=== PATIENT | male | born 1985 | race Two or more races ===

== ENCOUNTER 2019-05-06 21:03 | Emergency (ER) | payer SELFPAY ==
[~2019-05-06] VITALS: Ht 167.6 cm; Wt 71.7 kg
[2019-05-06] MEDS ORDERED: IBUPROFEN 400 MG TAB PO ONE (22:00)
[2019-05-06] MEDS ORDERED: HYDROcodone-ACET 7.5/325MG TAB PO ONE (22:00)
[2019-05-06 23:30] VITALS: BP 110/75
== END 2019-05-06 23:59 | disposition home or self-care (01) ==
LOC: ER 21:05
DX: S42.142A Displaced fracture of glenoid cavity of scapula, left shoulder, initial encounter for closed fracture (principal); S22.42XA Multiple fractures of ribs, left side, initial encounter for closed fracture; S42.025A Nondisplaced fracture of shaft of left clavicle, initial encounter for closed fracture; W19.XXXA Unspecified fall, initial encounter; Y93.89 Activity, other specified; Y99.8 Other external cause status; Y92.89 Other specified places as the place of occurrence of the external cause
CPT/HCPCS: 29105; 70450; 71045; 73000; 73030

== ENCOUNTER 2022-12-27 10:01 | Emergency (ER) | payer MEDICAID ==
[~2022-12-27] VITALS: Ht 165.1 cm; Wt 75.1 kg
[2022-12-27 10:31] VITALS: BP 140/91; PULSE 112; RESP 18; TEMP 97.5; O2SAT 100
[2022-12-27] MEDS ORDERED: IBUP-1454 PO (10:58)
[2022-12-27] MEDS ORDERED: CEPH500C PO (10:58)
== END 2022-12-27 11:09 | disposition home or self-care (01) ==
LOC: ER 10:01
DX: G96.191 Perineural cyst (principal); L08.9 Local infection of the skin and subcutaneous tissue, unspecified

== ENCOUNTER 2023-06-14 13:19 | Inpatient (IN) | payer MEDICAID ==
[~2023-06-14] VITALS: Ht 152.4 cm; Wt 77.5 kg
[~2023-06-14 13:19] MED LIST: CEPH500C PO; IBUP-1454 PO
[2023-06-14 15:29] LABS: Basophils # (auto) 0.1 10 ^3/uL (0-0.2); Basophils % (auto) 0.6 % (0.0-2.0); Eosinophils # (auto) 0 10 ^3/uL (0-0.8); Hematocrit 48.9 % (41.0-53.0); Hemoglobin 16.4 g/dL (13.5-17.5); Lymphocytes # (auto) 0.7 10 ^3/uL (0.4-5.4); Lymphocytes % (auto) 4.5 % (10.0-50.0); Mean Corpuscular Hgb Conc. 33.6 g/dL (32.0-36.0); Mean Corpuscular Volume 89.4 fL (80.0-100.0); Monocytes # (auto) 0.8 10 ^3/uL (0-1.3); Monocytes % (auto) 5.4 % (0.0-12.0); Neutrophils # (auto) 13.4 10 ^3/uL (1.6-8.6); Neutrophils % (auto) 89.5 % (37.0-80.0); Nucleated Red Blood Cells % 0.1 %; Red Blood Cells 5.47 10^6/uL (4.5-5.90); Red Cell Distribution Width 13.6 % (11.8-14.3)
[2023-06-14 15:42] LABS: Alanine Aminotransferase 61 U/L (7-40); Albumin 4.6 g/dL (3.2-4.8); Alkaline Phosphatase 144 U/L (46-116); Anion Gap 12 (5-15); Aspartate Aminotransferase 85 U/L (13-40); BUN/Creatinine Ratio 6.9 (10.0-20.0); Bilirubin, Total 2.4 mg/dL (0.2-1.0); Blood Alcohol 3.1 mg/dL (<10); Blood Urea Nitrogen 7 mg/dL (9-23); Calcium 9.4 mg/dL (8.5-10.1); Carbon Dioxide 25 mmol/L (20-30); Chloride 100 mmol/L (98-107); Glucose 145 mg/dL (74-106); Potassium 3.7 mmol/L (3.5-5.1); Sodium 137 mmol/L (136-145); Total Protein 8.1 g/dL (5.7-8.2)
[2023-06-14 15:43] LABS: INR 1.06 (0.9-1.15); Partial Thromboplastin Time 24.7 SEC (24.5-34.5); Prothrombin Time 11.1 sec (9.3-11.8)
[2023-06-14 16:12] LABS: Lipase 340 U/L (12-53)
[2023-06-14] MEDS: HYDROmorphone HCL 2 MG/ML VL/or syr IV ONE (16:15)
[2023-06-14 17:00] LABS: Lactic Acid w/Reflex 2.5 mmol/L (0.4-2.0)
[2023-06-14] MEDS ORDERED: ONDANSETRON HCL 4 MG/2 ML VIAL IV PRN (18:15)
[2023-06-14] MEDS ORDERED: DOCUSATE SOD 100 MG CAP PO PRN (18:15)
[2023-06-14] MEDS: KETOROLAC TROMETH 30 MG/ML 1ML VIAL IV ONE (20:16)
[2023-06-14] MEDS: METOCLOPRAMIDE HCL 5MG/ml INJ 2ml VIAL IV ONE (20:16)
[2023-06-14] MEDS: HYDROmorphone HCL 2 MG/ML VL/or syr IV PRN (20:21)
[2023-06-14] MEDS: PIPERACILLIN-TAZOB 3.375GM 100 ML IV ONE (20:28)
[2023-06-14] MEDS: SODIUM CHLORIDE 0.9% 1,000 ML IVB ONE (20:30)
[2023-06-14 20:35] LABS: CRP High Sensitivity 3.2 mg/dL (<1.0)
[2023-06-14] MEDS: chlordiazePOXIDE HCL 25 MG CAP PO SCH (20:40)
[2023-06-14] MEDS: SODIUM CHLORIDE 0.9% 1,000 ML IV SCH (21:11)
[2023-06-14] MEDS: PIPERACILLIN-TAZOB 3.375GM 100 ML IV SCH (21:14)
[2023-06-14] MEDS: PANTOPRAZOLE 40 MG/10 ML VIAL INJ IV SCH (22:04)
[2023-06-15 01:35] VITALS: BP 150/92; PULSE 97; RESP 19; TEMP 98.1; O2SAT 99
[2023-06-15 05:00] VITALS: BP 126/84; PULSE 98; RESP 18; TEMP 98.1; O2SAT 95
[2023-06-15 05:26] LABS: Basophils # (auto) 0 10 ^3/uL (0-0.2); Basophils % (auto) 0.3 % (0.0-2.0); Eosinophils # (auto) 0 10 ^3/uL (0-0.8); Eosinophils % (auto) 0.1 % (0.0-7.0); Hematocrit 39.5 % (41.0-53.0); Hemoglobin 13.8 g/dL (13.5-17.5); Lymphocytes # (auto) 0.7 10 ^3/uL (0.4-5.4); Lymphocytes % (auto) 7.4 % (10.0-50.0); Mean Corpuscular Hemoglobin 30.9 pg (28.0-32.0); Mean Corpuscular Volume 88.4 fL (80.0-100.0); Monocytes # (auto) 0.5 10 ^3/uL (0-1.3); Monocytes % (auto) 5.4 % (0.0-12.0); Neutrophils # (auto) 8.7 10 ^3/uL (1.6-8.6); Neutrophils % (auto) 86.8 % (37.0-80.0); Nucleated Red Blood Cells % 0.1 %; Red Blood Cells 4.47 10^6/uL (4.5-5.90); Red Cell Distribution Width 13.8 % (11.8-14.3); White Blood Cell 10.1 10^3/uL (4.4-10.8)
[2023-06-15 05:44] LABS: Alanine Aminotransferase 45 U/L (7-40); Albumin 3.7 g/dL (3.2-4.8); Alkaline Phosphatase 100 U/L (46-116); Anion Gap 8 (5-15); Aspartate Aminotransferase 43 U/L (13-40); BUN/Creatinine Ratio 9.3 (10.0-20.0); Blood Urea Nitrogen 7 mg/dL (9-23); Calcium 8.2 mg/dL (8.7-10.4); Carbon Dioxide 25 mmol/L (20-30); Chloride 105 mmol/L (98-107); Glucose 116 mg/dL (74-106); Lipase 127 U/L (12-53); Potassium 2.9 mmol/L (3.5-5.1); Sodium 138 mmol/L (136-145); Total Protein 6.7 g/dL (5.7-8.2)
[2023-06-15 09:00] VITALS: BP 132/81; PULSE 104; RESP 18; TEMP 98.7; O2SAT 94
[2023-06-15] MEDS: chlordiazePOXIDE HCL 25 MG CAP PO SCH (10:00)
[2023-06-15 13:00] VITALS: BP 134/80; PULSE 101; RESP 18; TEMP 97.9; O2SAT 98
[2023-06-15 17:00] VITALS: BP 130/72; PULSE 116; RESP 18; TEMP 99; O2SAT 94
[2023-06-15 21:00] VITALS: BP 144/82; PULSE 94; RESP 18; TEMP 98.5; O2SAT 97
[2023-06-15 22:15] LABS: Urine Bacteria NONE SEEN /hpf (None Seen); Urine Blood Negative /uL (Negative); Urine Clarity Clear (Clear); Urine Color Yellow (Yellow); Urine Protein, UAD TRACE (Negative); Urine Specific Gravity 1.031 (1.001-1.035); Urine Urobilinogen Normal (Negative); Urine WBC 1 /hpf (0 - 3)
[2023-06-15 22:23] LABS: Amphetamine Screen, Urine Neg (NEGATIVE)
[2023-06-15 22:24] LABS: Barbiturate Scree,Urine Neg (NEGATIVE); Benzodiazephine Screen, Urine Pos (NEGATIVE); Cannabinoid Screen, Urine Neg (NEGATIVE); Cocaine Screen, Urine Pos (NEGATIVE); Opiate Scree,Urine Neg (NEGATIVE); Phencyclidine Screen, Urine Neg (NEGATIVE)
[2023-06-16 01:00] VITALS: BP 115/67; PULSE 119; RESP 20; TEMP 98.7; O2SAT 96
[2023-06-16 05:00] VITALS: BP 101/61; PULSE 109; RESP 19; TEMP 99.2; O2SAT 95
[2023-06-16 09:00] VITALS: BP 111/69; PULSE 112; RESP 17; TEMP 98.1; O2SAT 95
[2023-06-16] MEDS: chlordiazePOXIDE HCL 25 MG CAP PO SCH (10:30)
[2023-06-16 13:00] VITALS: BP 103/71; PULSE 101; RESP 17; TEMP 98.7; O2SAT 98
[2023-06-17] MEDS ORDERED: chlordiazePOXIDE HCL 25 MG CAP PO SCH (07:00)
== END 2023-06-16 15:47 | disposition home or self-care (01) | DRG 720 ==
LOC: ER 13:19 → OVERFLOW 18:15 → WEST WING 06-15 01:28
PROVIDERS: ADMIT Internal Medicine; ATTEND Internal Medicine
DX: A41.9 Sepsis, unspecified organism (principal); E87.21 Acute metabolic acidosis; K85.90 Acute pancreatitis without necrosis or infection, unspecified; K26.3 Acute duodenal ulcer without hemorrhage or perforation; E86.1 Hypovolemia; K29.80 Duodenitis without bleeding; R73.9 Hyperglycemia, unspecified; F10.10 Alcohol abuse, uncomplicated; R74.01 Elevation of levels of liver transaminase levels; F17.200 Nicotine dependence, unspecified, uncomplicated; Z80.8 Family history of malignant neoplasm of other organs or systems; Z79.899 Other long term (current) drug therapy
CPT/HCPCS: 36415; 74176; 76705; 80053; 80307; 80320; 81001; 83605; 83690; 84478; 85025; 85610; 85730; 86141; 87040; 96365; 96375; C9113; G0378; J2543

== ENCOUNTER 2023-11-10 09:14 | Emergency (ER) | payer MEDICAID ==
[~2023-11-10] VITALS: Ht 160 cm; Wt 75.3 kg
[~2023-11-10 09:14] MED LIST changes: -CEPH500C PO
[2023-11-10 12:16] VITALS: TEMP 97.5; O2SAT 99
[2023-11-10 13:05] LABS: Basophils # (auto) 0.1 10 ^3/uL (0-0.2); Basophils % (auto) 0.8 % (0.0-2.0); Eosinophils # (auto) 0.1 10 ^3/uL (0-0.8); Eosinophils % (auto) 1.6 % (0.0-7.0); Hematocrit 43.7 % (41.0-53.0); Hemoglobin 15.1 g/dL (13.5-17.5); Lymphocytes # (auto) 1.4 10 ^3/uL (0.4-5.4); Mean Corpuscular Hemoglobin 31.3 pg (28.0-32.0); Mean Corpuscular Hgb Conc. 34.6 g/dL (32.0-36.0); Mean Corpuscular Volume 90.3 fL (80.0-100.0); Monocytes # (auto) 0.5 10 ^3/uL (0-1.3); Monocytes % (auto) 6.3 % (0.0-12.0); Neutrophils # (auto) 5.1 10 ^3/uL (1.6-8.6); Neutrophils % (auto) 72.3 % (37.0-80.0); Nucleated Red Blood Cells % 0.1 %; Platelet Count (auto) 161 10^3/uL (140-450); Red Blood Cells 4.84 10^6/uL (4.5-5.90); Red Cell Distribution Width 12.6 % (11.8-14.3); White Blood Cell 7.1 10^3/uL (4.4-10.8)
[2023-11-10] MEDS ORDERED: BACDST PO (13:12)
[2023-11-10] MEDS ORDERED: CEPH500C PO (13:12)
[2023-11-10] MEDS ORDERED: IBUP-1455 PO (13:12)
[2023-11-10 13:13] LABS: Chloride 105 mmol/L (98-107); Potassium 3.6 mmol/L (3.5-5.1); Sodium 134 mmol/L (136-145)
[2023-11-10 13:14] LABS: Anion Gap 6 (5-15); Carbon Dioxide 23 mmol/L (20-30)
[2023-11-10 13:15] LABS: Calcium 8.9 mg/dL (8.7-10.4)
[2023-11-10 13:19] VITALS: BP 137/64; PULSE 82; RESP 17
[2023-11-10 13:19] LABS: Glucose 133 mg/dL (74-106)
[2023-11-10] MEDS: MORPHINE SULFATE INJ 2 MG/ml SYRG IM ONE (13:19)
[2023-11-10 13:20] LABS: BUN/Creatinine Ratio 6.6 (10.0-20.0); Blood Urea Nitrogen < 5 mg/dL (9-23)
== END 2023-11-10 15:05 | disposition home or self-care (01) ==
LOC: ER 09:20
DX: N49.2 Inflammatory disorders of scrotum (principal); Z79.899 Other long term (current) drug therapy
CPT/HCPCS: 36415; 80048; 85025; 96372; 99283; J2270

== ENCOUNTER 2024-01-01 23:33 | Inpatient (IN) | payer MEDICAID ==
[~2024-01-01] VITALS: Ht 154.9 cm; Wt 75.0 kg
[~2024-01-01 23:33] MED LIST changes: +BACDST PO; +CEPH500C PO; +IBUP-1455 PO
[2024-01-02 00:01] LABS: Basophils # (auto) 0.1 10 ^3/uL (0-0.2); Basophils % (auto) 0.7 % (0.0-2.0); Eosinophils # (auto) 0.2 10 ^3/uL (0-0.8); Eosinophils % (auto) 2.3 % (0.0-7.0); Hematocrit 46.2 % (41.0-53.0); Hemoglobin 16.2 g/dL (13.5-17.5); Lymphocytes # (auto) 2.4 10 ^3/uL (0.4-5.4); Lymphocytes % (auto) 27.4 % (10.0-50.0); Mean Corpuscular Volume 88.8 fL (80.0-100.0); Monocytes # (auto) 0.6 10 ^3/uL (0-1.3); Monocytes % (auto) 7.1 % (0.0-12.0); Neutrophils # (auto) 5.6 10 ^3/uL (1.6-8.6); Neutrophils % (auto) 62.5 % (37.0-80.0); Nucleated Red Blood Cells % 0.1 %; Platelet Count (auto) 190 10^3/uL (140-450); Red Cell Distribution Width 13.1 % (11.8-14.3); White Blood Cell 8.9 10^3/uL (4.4-10.8)
[2024-01-02 00:31] LABS: Alanine Aminotransferase 79 U/L (7-40); Albumin 4.6 g/dL (3.2-4.8); Alkaline Phosphatase 134 U/L (46-116); Anion Gap 10 (5-15); Aspartate Aminotransferase 118 U/L (13-40); BUN/Creatinine Ratio 6.4 (10.0-20.0); Bilirubin, Total 0.9 mg/dL (0.2-1.0); Blood Urea Nitrogen 5 mg/dL (9-23); Calcium 9.2 mg/dL (8.7-10.4); Carbon Dioxide 22 mmol/L (20-31); Chloride 102 mmol/L (98-107); Glucose 106 mg/dL (74-106); Potassium 3.4 mmol/L (3.5-5.1); Sodium 134 mmol/L (136-145)
[2024-01-02] MEDS ORDERED: NITROGLYCERIN 0.4 MG SL TAB SL PRN (06:45)
[2024-01-02] MEDS ORDERED: MORPHINE SULFATE INJ 2 MG/ml SYRG IV PRN (06:45)
[2024-01-02] MEDS ORDERED: IBUPROFEN 600 MG TAB PO PRN (06:45)
[2024-01-02 07:30] VITALS: PULSE 94; RESP 16; O2SAT 99
[2024-01-02 07:42] LABS: Basophils # (auto) 0 10 ^3/uL (0-0.2); Basophils % (auto) 0.4 % (0.0-2.0); Eosinophils # (auto) 0.2 10 ^3/uL (0-0.8); Eosinophils % (auto) 3.1 % (0.0-7.0); Hematocrit 42.6 % (41.0-53.0); Hemoglobin 15.1 g/dL (13.5-17.5); Lymphocytes # (auto) 0.5 10 ^3/uL (0.4-5.4); Lymphocytes % (auto) 6.5 % (10.0-50.0); Mean Corpuscular Hemoglobin 31.6 pg (28.0-32.0); Mean Corpuscular Hgb Conc. 35.5 g/dL (32.0-36.0); Monocytes # (auto) 0.3 10 ^3/uL (0-1.3); Monocytes % (auto) 4.4 % (0.0-12.0); Neutrophils # (auto) 6.1 10 ^3/uL (1.6-8.6); Neutrophils % (auto) 85.6 % (37.0-80.0); Nucleated Red Blood Cells % 0.2 %; Platelet Count (auto) 127 10^3/uL (140-450); Red Blood Cells 4.79 10^6/uL (4.5-5.90); Red Cell Distribution Width 12.7 % (11.8-14.3); White Blood Cell 7.1 10^3/uL (4.4-10.8)
[2024-01-02] MEDS: SODIUM CHLORIDE 0.9% 1,000 ML IV SCH (07:59)
[2024-01-02] MEDS: POTASSIUM CHL 20 Meq TABLET PO ONE (07:59)
[2024-01-02 08:10] LABS: Alanine Aminotransferase 72 U/L (7-40); Albumin 4.2 g/dL (3.2-4.8); Alkaline Phosphatase 123 U/L (46-116); Anion Gap 7 (5-15); Aspartate Aminotransferase 88 U/L (13-40); BUN/Creatinine Ratio 7.7 (10.0-20.0); Blood Urea Nitrogen 6 mg/dL (9-23); Calcium 9.3 mg/dL (8.7-10.4); Carbon Dioxide 22 mmol/L (20-31); Chloride 106 mmol/L (98-107); Glucose 112 mg/dL (74-106); Potassium 3.7 mmol/L (3.5-5.1); Sodium 135 mmol/L (136-145)
[2024-01-02 08:11] LABS: Bilirubin, Total 1.7 mg/dL (0.2-1.0); Total Protein 7.5 g/dL (5.7-8.2)
[2024-01-02 10:38] VITALS: BP 121/82; PULSE 88; RESP 22; TEMP 97.8; O2SAT 99
[2024-01-02] MEDS: ASPirin 81 mg TAB PO SCH (11:13)
[2024-01-02 11:17] LABS: Urine Bacteria None Seen /hpf (None Seen)
[2024-01-02] MEDS: ONDANSETRON HCL 4 MG/2 ML VIAL IV PRN (11:17)
[2024-01-02] MEDS: MORPHINE SULFATE INJ 2 MG/ml SYRG IV PRN (11:18)
[2024-01-02] MEDS: DOCUSATE SOD 100 MG CAP PO PRN (11:31)
[2024-01-02 11:39] LABS: Urine Blood Negative /uL (Negative); Urine Clarity Clear (Clear); Urine Color Light-Orange (Yellow); Urine Protein, UAD TRACE (Negative); Urine Specific Gravity 1.022 (1.001-1.035); Urine Urobilinogen Normal (Negative); Urine WBC <1 /hpf (0 - 3)
[2024-01-02 17:00] VITALS: BP 124/80; PULSE 86; RESP 20; TEMP 98.3; O2SAT 95
[2024-01-02 20:00] VITALS: PULSE 88; PULSE 98; RESP 16
[2024-01-02 21:00] VITALS: BP 119/78; PULSE 97; RESP 18; TEMP 98.2; O2SAT 98
[2024-01-02] MEDS: HYDROcodone-ACET 5/325MG TAB PO PRN (21:04)
[2024-01-02] MEDS: ATORVASTATIN 20 MG TAB PO SCH (21:05)
[2024-01-03] VITALS (8 sets, daily range): BP systolic 112–132; BP diastolic 73–87; PULSE 74–97; RESP 16–18; TEMP 97.8–98.9; O2SAT 96–100
[2024-01-03 05:48] LABS: Basophils # (auto) 0 10 ^3/uL (0-0.2); Basophils % (auto) 0.7 % (0.0-2.0); Eosinophils # (auto) 0.3 10 ^3/uL (0-0.8); Eosinophils % (auto) 6.4 % (0.0-7.0); Hematocrit 40.6 % (41.0-53.0); Hemoglobin 14.2 g/dL (13.5-17.5); Lymphocytes % (auto) 22.6 % (10.0-50.0); Mean Corpuscular Hemoglobin 31.1 pg (28.0-32.0); Mean Corpuscular Hgb Conc. 34.9 g/dL (32.0-36.0); Mean Corpuscular Volume 89.1 fL (80.0-100.0); Monocytes # (auto) 0.4 10 ^3/uL (0-1.3); Monocytes % (auto) 8.7 % (0.0-12.0); Neutrophils # (auto) 2.8 10 ^3/uL (1.6-8.6); Neutrophils % (auto) 61.6 % (37.0-80.0); Nucleated Red Blood Cells % 0.3 %; Platelet Count (auto) 127 10^3/uL (140-450); Red Blood Cells 4.56 10^6/uL (4.5-5.90); Red Cell Distribution Width 12.8 % (11.8-14.3); White Blood Cell 4.6 10^3/uL (4.4-10.8)
[2024-01-03 06:05] LABS: Alanine Aminotransferase 63 U/L (7-40); Alkaline Phosphatase 109 U/L (46-116); Anion Gap 6 (5-15); Aspartate Aminotransferase 77 U/L (13-40); Blood Urea Nitrogen 7 mg/dL (9-23); Calcium 9.3 mg/dL (8.7-10.4); Carbon Dioxide 26 mmol/L (20-31); Chloride 104 mmol/L (98-107); Glucose 107 mg/dL (74-106); Potassium 3.8 mmol/L (3.5-5.1); Sodium 136 mmol/L (136-145)
[2024-01-03 06:06] LABS: Bilirubin, Total 1.1 mg/dL (0.2-1.0)
[2024-01-03 18:32] LABS: LDL Cholesterol 138 mg/dL (< 100); Triglycerides 183 mg/dL (< 150)
[2024-01-03 18:34] LABS: Cholesterol 216 mg/dL (< 200); HDL Cholesterol 67 mg/dL (40-59)
[2024-01-03 21:55] LABS: Amphetamine Screen, Urine Neg (NEGATIVE); Barbiturate Scree,Urine Neg (NEGATIVE); Benzodiazephine Screen, Urine Neg (NEGATIVE); Cannabinoid Screen, Urine Neg (NEGATIVE); Cocaine Screen, Urine Neg (NEGATIVE); Opiate Scree,Urine Neg (NEGATIVE); Phencyclidine Screen, Urine Neg (NEGATIVE)
[2024-01-04 01:00] VITALS: BP 110/71; PULSE 82; RESP 18; TEMP 98; O2SAT 96
[2024-01-04 05:00] VITALS: BP 111/74; PULSE 86; RESP 18; TEMP 97.9; O2SAT 99
[2024-01-04 08:00] VITALS: PULSE 84; PULSE 86; RESP 18
[2024-01-04 09:00] VITALS: BP 116/60; PULSE 84; RESP 16; TEMP 97.6; O2SAT 97
[2024-01-04 13:00] VITALS: BP 126/83; PULSE 87; RESP 16; TEMP 98; O2SAT 98
[2024-01-04 14:25] VITALS: BP 126/83; PULSE 87; RESP 17; TEMP 97.8; O2SAT 98
[2024-01-04] MEDS ORDERED: ATORVASTATIN 20 MG TAB PO SCH (22:00)
== END 2024-01-04 15:00 | disposition home or self-care (01) | DRG 203 ==
LOC: ER 23:33 → TELE 01-02 06:42 → TELE-CENTR 01-02 10:00
PROVIDERS: ADMIT Nurse Practitioner Family; ATTEND Internal Medicine
DX: M94.0 Chondrocostal junction syndrome [Tietze] (principal); E87.8 Other disorders of electrolyte and fluid balance, not elsewhere classified; E66.9 Obesity, unspecified; E87.6 Hypokalemia; F10.90 Alcohol use, unspecified, uncomplicated; Z68.31 Body mass index [BMI] 31.0-31.9, adult; Z80.8 Family history of malignant neoplasm of other organs or systems; Z82.49 Family history of ischemic heart disease and other diseases of the circulatory system; Z83.3 Family history of diabetes mellitus; Z79.899 Other long term (current) drug therapy; Y90.9 Presence of alcohol in blood, level not specified
CPT/HCPCS: 36415; 70450; 80053; 80061; 80307; 81001; 82962; 83036; 83735; 83880; 84443; 84484; 85025; 93005; 93306; 99291; G0378; J2405

== ENCOUNTER 2024-01-24 05:43 | Inpatient (IN) | payer MEDICAID ==
[~2024-01-24] VITALS: Ht 160 cm; Wt 76.6 kg
[~2024-01-24 05:43] MED LIST changes: -BACDST PO; -CEPH500C PO
--- NOTE | 2024-01-24 05:56 | ED.PDOC ---
History of Present Illness HPI Comments MSE 38-year-old male previously healthy presents with 12 hours of paresthesias and numbness to his left arm leg and face. Patient also reports he is some weakness of his left leg. Patient reports it has happened before and he was told it is because he has high cholesterol. Patient is out of the window for thrombolytics for acute CVA. Patient's presentation is not consistent for acute CVA we will order labs CT and x-ray to evaluate for possible causes. Patient will be endorsed to morning doctor. Chief Complaint: Left Sided Weakness Time Seen by MD: 05:52 Primary Care Provider: unknown Reviewed Notes: Nurses Notes Allergies: Coded Allergies: NO KNOWN ALLERGIES (Unverified , 05/06/19) Home Meds Active Scripts Ibuprofen Micronized (Ibuprofen) 800 Mg Tab, 800 MG PO TIDP PRN for 10 Days, #30 TAB 0 Refills Prov:NAOMI ZIMMERMAN ENERGY OPERATIONS VICE PRESIDENT 11/10/23 Ibuprofen (Ibuprofen) 600 Mg Tab, 1 TAB PO TID, #30 TAB Prov:RONAK GEE 12/27/22 Information Source: Patient Mode of Arrival: Ambulatory DEWEY SMITH MD Jan 24, 2024 05:56
--- NOTE | 2024-01-24 06:17 | DVH ---
CHEST RADIOGRAPH Indication:parasthesias Technique: Single frontal view of the chest was obtained COMPARISON: XY CHEST PORTABLE on DOS: 01/01/24, CHEST PORTABLE on DOS: 05/06/19 FINDINGS: Lines and Tubes: None Lungs: Clear Pleura: No effusion. No pneumothorax. Cardiomediastinal contours: Unremarkable Bones: Unremarkable IMPRESSION: No acute disease.
--- NOTE | 2024-01-24 06:21 | DVH ---
EXAM: CT HEAD WITHOUT CONTRAST INDICATION: parasthesias TECHNIQUE: CT of the head without intravenous contrast. Radiation Dose : 1. Head: CT Dose: CTDI volume is 54 mGy. Dose-length product is 1076 mGy*cm The dose indicators for CT are the volume Computed Tomography (CT) Dose Index (CTDIvol) and the Dose Length Product (DLP), and are measured in units of mGy and mGy-cm, respectively. These indicators are not patient dose, but values generated from the CT scanner acquisition factors. The report includes radiation exposure data for exposures received during this examination. COMPARISON: CT HEAD WITHOUT CONTRAST on DOS: 01/04/24, HEAD WITHOUT CONTRAST on DOS: 05/06/19 FINDINGS: There is no evidence of acute intracranial hemorrhage, extra-axial collection, mass effect, midline s hift, herniation or hydrocephalus. The ventricles, sulci and cisterns are age appropriate. The jaramillo-white differentiation is intact. The visualized paranasal sinuses and mastoid air cells are clear. The surrounding soft tissues and osseous structures are unremarkable. IMPRESSION: No acute intracranial abnormality. Radiation optimization: All CT scans at this facility use at least one of these dose optimization monico hniques: automated exposure control mA and/or kV adjustment per patient size (includes targeted exam s where dose is matched to clinical indication) or iterative reconstruction.
[2024-01-24 06:55] LABS: Chloride 101 mmol/L (98-107); Potassium 3.7 mmol/L (3.5-5.1); Sodium 134 mmol/L (136-145)
[2024-01-24 06:56] LABS: Anion Gap 12 (5-15); Calcium 9.4 mg/dL (8.7-10.4); Carbon Dioxide 21 mmol/L (20-31)
[2024-01-24 06:57] LABS: Basophils # (auto) 0.1 10 ^3/uL (0-0.2); Basophils % (auto) 0.8 % (0.0-2.0); Eosinophils # (auto) 0.1 10 ^3/uL (0-0.8); Eosinophils % (auto) 0.7 % (0.0-7.0); Hematocrit 47.1 % (41.0-53.0); Hemoglobin 16.7 g/dL (13.5-17.5); Lymphocytes % (auto) 24.5 % (10.0-50.0); Mean Corpuscular Hemoglobin 31.2 pg (28.0-32.0); Mean Corpuscular Hgb Conc. 35.4 g/dL (32.0-36.0); Mean Corpuscular Volume 88.2 fL (80.0-100.0); Monocytes # (auto) 0.5 10 ^3/uL (0-1.3); Monocytes % (auto) 5.9 % (0.0-12.0); Neutrophils # (auto) 5.4 10 ^3/uL (1.6-8.6); Neutrophils % (auto) 68.1 % (37.0-80.0); Nucleated Red Blood Cells % 0.2 %; Platelet Count (auto) 303 10^3/uL (140-450); Red Blood Cells 5.34 10^6/uL (4.5-5.90); Red Cell Distribution Width 13.3 % (11.8-14.3)
--- NOTE | 2024-01-24 06:59 | ED.PDOC ---
History of Present Illness HPI Comments 38Y M with PMHx HTN and HLD presents to ED for chief complaint lt sided weakness and numbness x12hrs with chest pain. Pt described chest pain as chest pressure that sometimes radiates to his back. Pt had one vomiting episode after the chest pain began. Pt states eyes feel "sleepy". Pt denies trauma. No known allergies. Chief Complaint: Left Sided Weakness Time Seen by MD: 07:36 Primary Care Provider: unknown Reviewed Notes: Medications, Allergies Allergies: Coded Allergies: NO KNOWN ALLERGIES (Unverified , 05/06/19) Home Meds Active Scripts Ibuprofen Micronized (Ibuprofen) 800 Mg Tab, 800 MG PO TIDP PRN for 10 Days, #30 TAB 0 Refills Prov:NAOMI ZIMMERMAN CLINICAL NURSE REVIEWER 11/10/23 Ibuprofen (Ibuprofen) 600 Mg Tab, 1 TAB PO TID, #30 TAB Prov:RONAK GEE 12/27/22 Information Source: Patient Mode of Arrival: Ambulatory Severity: Moderate Timing: Hours Duration: Since onset Past Medical History PAST MEDICAL HISTORY: High Lipids, HTN Surgical History: Denies all surgeries Family History Family History: Reviewed,noncontributory to illness Social History Smoker: Non-Smoker Alcohol: Occasionally Drugs: Denies Drug Use Lives In: Home Constitutional: denies: chills, diaphoresis, fatigue, fever, malaise, sweats, weakness, others EENTM: denies: blurred vision, double vision, ear bleeding, ear discharge, ear drainage, ear pain, ear ringing, eye pain, eye redness, hearing loss, mouth pain, mouth swelling, nasal discharge, nose bleeding, nose congestion, nose pain, photophobia, tearing, throat pain, throat swelling, voice changes, others Respiratory: denies: cough, hemoptysis, orthopnea, SOB at rest, shortness of breath, SOB with excertion, stridor, wheezing, others Cardiovascular: reports: chest pain (pressure); denies: dizzy spells, diaphoresis, Dyspnea on exertion, edema, irregular heart beat, left arm pain, lightheadedness, palpitations, PND, syncope, others Gastrointestinal: denies: abdomen distended, abdominal pain, blood streaked bowels, constipated, diarrhea, dysphagia, difficulty swallowing, hematemesis, melena, nausea, poor appetite, poor fluid intake, rectal bleeding, rectal pain, vomiting, others Genitourinary: denies: burning, dysuria, flank pain, frequency, hematuria, incontinence, penile discharge, penile sore, pain, testicle pain, testicle swelling, urgency, others Neurological: reports: left sided numbness, left sided weakness; denies: dizziness, fainting, headache, numbness, paresthesia, pre-existing deficit, ri ght sided numbness, right sided weakness, seizure, speech problems, tingling, tremors, weakness, others Musculoskeletal: denies: back pain, gout, joint pain, joint swelling, muscle pain, muscle stiffness, neck pain, others Integumetry: denies: bruises, change in color, change in hair/nails, dryness, laceration, lesions, lumps, rash, wounds, others Allergic/Immunocompromised: denies: Difficulty Healing, Frequent Infections, Hives, Itching, others Hematologic/Lymphatic: denies: anemia, blood clots, easy bleeding, easy bruising, swollen glands, others Endocrine: denies: excessive hunger, excessive sweating, excessive thirst, excessive urination, flushing, intolerance to cold, intolerance to heat, unexplained weight gain, unexplained weight loss, others Psychiatric: denies: anxiety, bipolar disorder, depression, hopeless, panic disorder, schizophrenia, sleepless, suicidal, others All Other Systems: Reviewed and Negative (Please refer to Dr. Smith's note.) Physical Exam General Appearance: No Apparent Distress, Normal HEENT: Normal ENT Inspection, Pharynx Normal, TMs Normal Neck: Full Range of Motion, Non-Tender, Normal, Normal Inspection Respiratory: Chest Non-Tender, Lungs Clear, No Accessory Muscle Use, No Respiratory Distress, Normal Breath Sounds Cardiovascular: No Edema, No JVD, No Murmur, No Gallop, Normal Peripheral Pulses, Regular Rate/Rhythm Breast Exam: Deferred Gastrointestinal: No Organomegaly, Non Tender, No Pulsatile Mass, Normal Bowel Sounds, Soft Genitalia: Deferred Pelvic: Deferred Rectal: Deferred Extremities: No calf tenderness, Normal capillary refill, Normal inspection, Normal range of motion, Non-tender, No pedal edema Musculoskeletal : Apperance: Normal Neurologic: Alert, appraiser real estate II-XII nml as Tested, Motor Weakness (4/5 LLE, LUE 5/5 RUE, RLE), Normal Affect, Normal Mood, No Sensory Deficits Cerebellar Function: Normal Reflexes: Normal Skin: Dry, Normal Color, Warm Lymphatic: No Adenopathy Was a procedure done? Was a procedure done?: No EKG EKG : Pulse Rate (adult): 91 [place]: Normal Cardiac Rhythm: NSR Block: None Hypertrophy: None ST: Normal Comments no significant ST changes Differential Dx Considerations may include: stroke, acute coronary syndrome, TIA, MS injury, atypical chest pain, intracranial hemorrhage X-Ray, Labs, Meds, VS Vital Signs Date Time Temp Pulse Resp B/P (MAP) Pulse Ox O2 Delivery O2 Flow Rate FiO2 01/24/24 08:01 129/90 01/24/24 07:09 91 98 Room Air* 0 21 01/24/24 06:59 91 01/24/24 06:42 91 01/24/24 06:15 98.1 95 23 124/90 (101) 95 98.1 01/24/24 05:49 92 01/24/24 05:45 98.1 106 18 149/96 (113) 99 Lab Test 01/24/24 07:08 01/24/24 06:14 Range/Units Troponin I High Sensitivity < 3 L < 3 L </=54 ng/L White Blood Count 8.0 4.4-10.8 10^3/uL Red Blood Count 5.34 4.5-5.90 10^6/uL Hemoglobin 16.7 13.5-17.5 g/dL Hematocrit 47.1 41.0-53.0 % Mean Corpuscular Volume 88.2 80.0-100.0 fL Mean Corpuscular Hemoglobin 31.2 28.0-32.0 pg Mean Corpuscular Hemoglobin Concent 35.4 32.0-36.0 g/dL Red Cell Distribution Width 13.3 11.8-14.3 % Platelet Count 303 140-450 10^3/uL Mean Platelet Volume 7.7 6.9-10.8 fL Neutrophils (%) (Auto) 68.1 37.0-80.0 % Lymphocytes (%) (Auto) 24.5 10.0-50.0 % Monocytes (%) (Auto) 5.9 0.0-12.0 % Eosinophils (%) (Auto) 0.7 0.0-7.0 % Basophils (%) (Auto) 0.8 0.0-2.0 % Neutrophils # (Auto) 5.4 1.6-8.6 10 ^3/uL Lymphocytes # (Auto) 2.0 0.4-5.4 10 ^3/uL Monocytes # (Auto) 0.5 0-1.3 10 ^3/uL Eosinophils # (Auto) 0.1 0-0.8 10 ^3/uL Basophils # (Auto) 0.1 0-0.2 10 ^3/uL Nucleated Red Blood Cells 0.2 % Sodium Level 134 L 136-145 mmol/L Potassium Level 3.7 3.5-5.1 mmol/L Chloride Level 101 98-107 mmol/L Carbon Dioxide Level 21 20-31 mmol/L Anion Gap 12 5-15 Blood Urea Nitrogen 12 9-23 mg/dL Creatinine 0.85 0.700-1.30 mg/dL Glomerular Filtration Rate Calc 113 >90 mL/min BUN/Creatinine Ratio 14.1 10.0-20.0 Serum Glucose 93 74-106 mg/dL Calcium Level 9.4 8.7-10.4 mg/dL Current Medications Medications (Trade) Dose Ordered Sig/Evie Route Start Time Stop Time Status Last Admin Aspirin 324 mg ONCE ONCE PO 01/24/24 07:45 01/24/24 07:46 DC 01/24/24 07:59 Nitroglycerin (Ntrostat Sublingual) 0.4 mg ONCE ONCE SL 01/24/24 07:45 01/24/24 07:46 DC 01/24/24 08:01 [place] [address] Ph: [phone] DIAGNOSTIC IMAGING Diagnostic Imaging Report : [id number] Signed PATIENT: CLAUDIO HANKS ACCT: [id number] UNIT: [id number] : 1985 LOC: ER ROOM / BED: / AGE / SEX: 38 / M ADM STATUS: REG ER SERVICE 0552 ORDERING PHYSICIAN: DEWEY SMITH MD PROCEDURE(s): HWOCT - HEAD WITHOUT CONTRAST REASON: parasthesias ORDER NUMBER(s): [id number], ACCESSION NUMBER(s): [id number] EXAM: CT HEAD WITHOUT CONTRAST INDICATION: parasthesias TECHNIQUE: CT of the head without intravenous contrast. Radiation Dose : 1. Head: CT Dose: CTDI volume is 54 mGy. Dose-length product is 1076 mGy*cm The dose indicators for CT are the volume Computed Tomography (CT) Dose Index (CTDIvol) and the Dose Length Product (DLP), and are measured in units of mGy and mGy-cm, respectively. These indicators are not patient dose, but values generated from the CT scanner acquisition factors. The report includes radiation exposure data for exposures received during this examination. COMPARISON: CT HEAD WITHOUT CONTRAST on DOS: 01/04/24, HEAD WITHOUT CONTRAST on DOS: 05/06/19 FINDINGS: There is no evidence of acute intracranial hemorrhage, extra-axial collection, mass effect, midline shift, herniation or hydrocephalus. The ventricles, sulci and cisterns are age appropriate. The jaramillo-white differentiation is intact. The visualized paranasal sinuses and mastoid air cells are clear. The surrounding soft tissues and osseous structures are unremarkable. IMPRESSION: No acute intracranial abnormality. Radiation optimization: All CT scans at this facility use at least one of these dose optimization techniques: automated exposure control mA and/or kV adjustment per patient size (includes targeted exams where dose is matched to clinical indication) or iterative reconstruction. ATED BY: JIMENEZ DICKEY MD DICTATED DATE/TIME: 01/24/24616 SIGNED BY: JIMENEZ DICKEY MD SIGNED DATE/TIME: 01/24/24616 CC: [place] [address] Ph: [phone] DIAGNOSTIC IMAGING Diagnostic Imaging Report : [id number] Signed PATIENT: CLAUDIO HANKS ACCT: [id number] UNIT: [id number] : 1985 LOC: ER ROOM / BED: / AGE / SEX: 38 / M ADM STATUS: REG ER SERVICE 1 ORDERING PHYSICIAN: DEWEY SMITH MD PROCEDURE(s): CXRP - CHEST PORTABLE REASON: parasthesias ORDER NUMBER(s): [id number], ACCESSION NUMBER(s): [id number] CHEST RADIOGRAPH Indication:parasthesias Technique: Single frontal view of the chest was obtained COMPARISON: XY CHEST PORTABLE on DOS: 01/01/24, CHEST PORTABLE on DOS: 05/06/19 FINDINGS: Lines and Tubes: None Lungs: Clear Pleura: No effusion. No pneumothorax. Cardiomediastinal contours: Unremarkable Bones: Unremarkable IMPRESSION: No acute disease. ATED BY: JIMENEZ DICKEY MD DICTATED DATE/TIME: 01/24/24612 SIGNED BY: JIMENEZ DICKEY MD SIGNED DATE/TIME: 01/24/24612 CC: 38-year-old male presents here with left arm and leg weakness since approximately 6:00 p.m. yesterday which is approximately 12 hours from his arrival to the ER. He does have some mild 4/5 strength to left upper and left lower extremity. No facial droop no slurred speech. I am concerned about possible stroke-like symptoms. He is not a candidate for tPA as he is out of the time window. Also not a candidate for thrombectomy due to his low acuity of symptoms. On my initial evaluation of the patient who is reporting chest discomfort. EKG with no significant ST changes. First set troponin is negative. I have given him nitroglycerin and aspirin in the ER. Blood work has been done which is unremarkable. CT scan of the brain also has been done with no evidence of intracranial hemorrhage. At this time I believe he would benefit from inpatient admission. Hospitalist team has been contacted for admission. Time of 1ST Reevaluation: 07:45 Reevaluation 1ST: Unchanged Patient Education/Counseling: Diagnosis, Treatment Family Education/Counseling: No Family Present Departure 1 Departure Time of Disposition: 09:15 Impression: Primary Impression: Stroke-like symptoms Additional Impression: Chest pain Qualified Codes: R07.9 - Chest pain, unspecified Disposition: 09 ADMITTED INPATIENT Condition: Guarded Critical Care Note Critical Care Time?: No Stability Stability form required: No Heart Score Heart Score: Heart Score Response (Comments) Value History Moderate Suspicious 1 EKG Normal 0 Age <45 0 Risk Factors 1 or 2 risk factors 1 Troponin Normal limit 0 Total 2 I personally scribed for REHAN ROJAS MD ([email or web address]) on 01/24/24 at 06:59. Electronically submitted by Marina Valles ([email or web address]). I personally scribed for REHAN ROJAS MD ([email or web address]) on 01/24/24 at 07:02. Electronically submitted by Marina Valles ([facility]). I personally scribed for REHAN ROJAS MD ([email or web address]) on 01/24/24 at 07:56. Electronically submitted by Marina Valles ([facility]). REHAN ROJAS MD Jan 24, 2024 06:59
[2024-01-24 07:01] LABS: BUN/Creatinine Ratio 14.1 (10.0-20.0); Blood Urea Nitrogen 12 mg/dL (9-23); Glucose 93 mg/dL (74-106)
[2024-01-24 07:09] VITALS: PULSE 91; O2SAT 98
[2024-01-24 07:40] VITALS: PULSE 96; RESP 15; O2SAT 97
[2024-01-24] MEDS: ASPirin 81 mg TAB PO ONE (07:59)
[2024-01-24] MEDS: NITROGLYCERIN 0.4 MG SL TAB SL ONE (08:01)
[2024-01-24] MEDS ORDERED: ONDANSETRON HCL 4 MG/2 ML VIAL IV PRN (09:15)
--- NOTE | 2024-01-24 09:27 | DVHHP2 ---
History of Present Illness Reason for Visit: Weakness and Chest Pain History of Present Illness 38 yo norwegian speaking male with complaints weakness on his left sided for extended period of time associated with chest pain as well came to the ED stating that the left side of his body was weak. Patient describes not being able to lift the left arm and left leg properly but no acute signs of changes in facial pattern or visual noted changes in facial expression patient hemodynamically stable but recommended for admission and further evaluation for both weakness and chest pain Cardiovascular: HTN Review of Systems Constitutional: Yes: Weakness; No: Fever, Chills, Sweats, Malaise, Other Eyes: No: Pain, Vision change, Conjunctivae inflammation, Eyelid inflammation, Other, Redness Cardiovascular: Chest Pain; No: Palpitations, Orthopnea, Paroxysmal Noc. Dyspnea, Edema, Lt Headedness, Other Gastrointestinal: No: Nausea, Vomiting, Abdominal Pain, Diarrhea, Constipation, Melena, Hematochezia, Other Genitourinary: No Dysuria, No Frequency, No Incontinence, No Hematuria, No Retention, No Other Musculoskeletal: arm pain, leg pain (arm and leg weakness on the left side ) Allergies: Coded Allergies: NO KNOWN ALLERGIES (Unverified , 05/06/19) Medications Current Medications Medications Dose Ordered Sig/Evie Route Start Time Stop Time Status Last Admin Dose Admin Aspirin 81 mg DAILY PO 01/24/24 10:00 UNV Clopidogrel Bisulfate 75 mg DAILY PO 01/24/24 10:00 UNV Atorvastatin Calcium 40 mg HS PO 01/24/24 22:00 UNV Metoprolol Tartrate 12.5 mg Q12HR PO 01/24/24 10:00 UNV Lisinopril 5 mg DAILY PO 01/24/24 10:00 UNV Acetaminophen 650 mg Q6HP PRN PO 01/24/24 09:15 UNV Lorazepam 0.5 mg Q6HP PRN PO 01/24/24 09:15 UNV Docusate Sodium 100 mg DAILY PO 01/24/24 10:00 UNV Nitroglycerin 0.4 mg Q5MINP PRN SL 01/24/24 09:15 UNV Ondansetron HCl 4 mg Q4HP PRN IV 01/24/24 09:15 UNV Exam Vital Signs Vital Signs Date Time Temp Pulse Resp B/P (MAP) Pulse Ox O2 Delivery O2 Flow Rate FiO2 01/24/24 08:50 92 01/24/24 08:01 129/90 01/24/24 07:40 15 97 Room Air* 0 21 01/24/24 07:40 98.4 98.4 General Appearance: Alert, Oriented X3 HEENT: Atraumatic, PERRLA Respiratory: Clear to auscultation, Normal air movement Cardiovascular: Regular rate Abdominal: Normal bowel sounds, Soft, No tenderness Extremities: No clubbing, No cyanosis Skin: No rashes, No breakdown Neuro: Normal speech, Strength at 5/5 X4 ext (4/5 strength on the left upper and lower ) Labs/Xrays Labs Test 01/24/24 08:59 01/24/24 06:14 Range/Units White Blood Count 8.0 4.4-10.8 10^3/uL Red Blood Count 5.34 4.5-5.90 10^6/uL Hemoglobin 16.7 13.5-17.5 g/dL Hematocrit 47.1 41.0-53.0 % Mean Corpuscular Volume 88.2 80.0-100.0 fL Mean Corpuscular Hemoglobin 31.2 28.0-32.0 pg Mean Corpuscular Hemoglobin Concent 35.4 32.0-36.0 g/dL Red Cell Distribution Width 13.3 11.8-14.3 % Platelet Count 303 140-450 10^3/uL Mean Platelet Volume 7.7 6.9-10.8 fL Neutrophils (%) (Auto) 68.1 37.0-80.0 % Lymphocytes (%) (Auto) 24.5 10.0-50.0 % Monocytes (%) (Auto) 5.9 0.0-12.0 % Eosinophils (%) (Auto) 0.7 0.0-7.0 % Basophils (%) (Auto) 0.8 0.0-2.0 % Neutrophils # (Auto) 5.4 1.6-8.6 10 ^3/uL Lymphocytes # (Auto) 2.0 0.4-5.4 10 ^3/uL Monocytes # (Auto) 0.5 0-1.3 10 ^3/uL Eosinophils # (Auto) 0.1 0-0.8 10 ^3/uL Basophils # (Auto) 0.1 0-0.2 10 ^3/uL Nucleated Red Blood Cells 0.2 % Sodium Level 134 L 136-145 mmol/L Potassium Level 3.7 3.5-5.1 mmol/L Chloride Level 101 98-107 mmol/L Carbon Dioxide Level 21 20-31 mmol/L Anion Gap 12 5-15 Blood Urea Nitrogen 12 9-23 mg/dL Creatinine 0.85 0.700-1.30 mg/dL Glomerular Filtration Rate Calc 113 >90 mL/min BUN/Creatinine Ratio 14.1 10.0-20.0 Serum Glucose 93 74-106 mg/dL Calcium Level 9.4 8.7-10.4 mg/dL Assessment/Plan Assessment/Plan Admit Tele Evaluation TIA suspected CT head negative outside of the window for TPA not a candidate for thrombectomy evaluation for weakness and TIA recommended CHEST Pain nonspecific associated with stated weakness Trops times 2 negative continue with evaluation for acute coronary syndrome cardiac protocol followed for chest pain asa, beta ernie, statins initiated prn management for pain consider cardio or neuro evaluation if no improvement in case Plan discussed with: Patient My Orders Orders - JEFE TURPIN MD Procedure Category Date Status Time Admit ADMIT 01/24/24 Transmitted 09:11 Code Status CODE 01/24/24 Transmitted 09:11 Vital Signs [place] 01/24/24 In Process 09:11 Informatics Physician Liaison [place] 01/24/24 In Process 09:11 Cardiac DIET 01/24/24 Transmitted Diet-2gna,Lofat,Lochol Breakfast Aspirin Tablet PHA 01/24/24 Logged 10:00 Clopidogrel Bisulfate PHA 01/24/24 Logged (Plavix) 10:00 Atorvastatin (Lipitor) PHA 01/24/24 Logged 22:00 Metoprolol Tartrate PHA 01/24/24 Logged Tablet (Lopressor Ta 10:00 Lisinopril Tablet PHA 01/24/24 Logged (Zestril Tablet) 10:00 Acetaminophen Tablet PHA 01/24/24 Logged (Tylenol Tablet) 09:15 Lorazepam Tablet PHA 01/24/24 Logged (Ativan Tablet) 09:15 Docusate Sodium PHA 01/24/24 Logged Capsule (Colace 10:00 Complete Blood Count LAB 01/25/24 Verified 04:00 Basic Metabolic Panel LAB 01/25/24 Verified 04:00 Nitroglycerin PHA 01/24/24 Logged Sublingual (Ntrostat 09:15 Ondansetron Hcl PHA 01/24/24 Logged (Zofran) 09:15 Electrocardigram EKG 01/24/24 Logged 14:00 Troponin-I Hs LAB 01/24/24 Logged 14:00 Stat Ekg For Chest [facility] 01/24/24 In Process Pain 09:11 Notify Md Of Changes [facility] 01/24/24 In Process From Base 09:11 Plant Maintenance Engineer For [facility] 01/24/24 In Process 24 Hours 09:11 Rhythm Strips Once [facility] 01/24/24 In Process Every Shift 09:11 Oxygen By Nasal RT 01/24/24 Transmitted Cannula 09:11 Emergency Dysrhythmia [facility] 01/24/24 In Process Protocol 09:11 Problem List: (1) Chest pain, unspecified (2) Stroke-like symptoms Date of Service: Jan 24, 2024 Billing Provider: JEFE TURPIN MD Common Visit Codes: [id number] INP/OBS CARE (HIGH) JEFE TURPIN MD Jan 24, 2024 09:27
[2024-01-24 09:43] LABS: Urine Bacteria None Seen /hpf (None Seen)
[2024-01-24 10:06] LABS: Urine Blood Negative /uL (Negative); Urine Clarity Clear (Clear); Urine Color Yellow (Yellow); Urine Mucus FEW (None Seen); Urine Protein, UAD TRACE (Negative); Urine Specific Gravity 1.028 (1.001-1.035); Urine Urobilinogen Normal (Negative); Urine WBC <1 /hpf (0 - 3); Urine pH 5.5 (5.0-9.0)
[2024-01-24] MEDS: DOCUSATE SOD 100 MG CAP PO SCH (10:36)
[2024-01-24] MEDS: CLOPIDOGREL BISULFATE 75 MG TAB PO SCH (10:37)
[2024-01-24] MEDS: LISINOPRIL 5 MG TAB PO SCH (10:37)
[2024-01-24] MEDS: METOPROLOL TARTRATE 25 MG TAB PO SCH (10:40)
[2024-01-24] MEDS: ACETAMINOPHEN 325 MG TAB PO PRN (15:09)
[2024-01-24 20:00] VITALS: PULSE 95
[2024-01-24 21:00] VITALS: BP 101/64; PULSE 89; RESP 18; TEMP 98.6; O2SAT 96
[2024-01-24] MEDS: ATORVASTATIN 20 MG TAB PO SCH (21:42)
[2024-01-24] MEDS: LORazepam 0.5 MG TAB PO PRN (21:42)
[2024-01-24] MEDS: HYDROcodone-ACET 5/325MG TAB PO PRN (21:42)
[2024-01-25] VITALS (8 sets, daily range): BP systolic 101–122; BP diastolic 71–83; PULSE 71–103; RESP 16–20; TEMP 97.7–98.8; O2SAT 97–100
[2024-01-25 07:13] LABS: Basophils # (auto) 0 10 ^3/uL (0-0.2); Basophils % (auto) 0.6 % (0.0-2.0); Eosinophils # (auto) 0.2 10 ^3/uL (0-0.8); Eosinophils % (auto) 3.1 % (0.0-7.0); Hematocrit 42.3 % (41.0-53.0); Hemoglobin 14.6 g/dL (13.5-17.5); Lymphocytes # (auto) 1.8 10 ^3/uL (0.4-5.4); Lymphocytes % (auto) 29.9 % (10.0-50.0); Mean Corpuscular Hemoglobin 30.8 pg (28.0-32.0); Mean Corpuscular Hgb Conc. 34.6 g/dL (32.0-36.0); Monocytes # (auto) 0.4 10 ^3/uL (0-1.3); Monocytes % (auto) 7.5 % (0.0-12.0); Neutrophils # (auto) 3.5 10 ^3/uL (1.6-8.6); Neutrophils % (auto) 58.9 % (37.0-80.0); Nucleated Red Blood Cells % 0.7 %; Platelet Count (auto) 179 10^3/uL (140-450); Red Blood Cells 4.76 10^6/uL (4.5-5.90); Red Cell Distribution Width 13.2 % (11.8-14.3); White Blood Cell 5.9 10^3/uL (4.4-10.8)
[2024-01-25 07:40] LABS: Anion Gap 6 (5-15); Calcium 9.1 mg/dL (8.7-10.4); Carbon Dioxide 26 mmol/L (20-31); Chloride 103 mmol/L (98-107); Potassium 3.7 mmol/L (3.5-5.1); Sodium 135 mmol/L (136-145)
[2024-01-25 07:46] LABS: BUN/Creatinine Ratio 14.6 (10.0-20.0); Blood Urea Nitrogen 12 mg/dL (9-23); Glucose 109 mg/dL (74-106)
--- NOTE | 2024-01-25 08:44 | ECG ---
[facility] Test Date: 2024-01-24 Test Time: 08:50:49 Pat Name: CLAUDIO AEGLEDepartment: er Room: 0285T Gender: M Manager Development: shree : 1985 Requested By: DEWEY SMITH Order Number: [id number] Reading MD: Measurements Intervals [place] Rate: 92 P: 55 FL: 155 QRS: 185 QRSD: 94 T: 81 QT: 362 QTc: 448 Interpretive Statements Sinus rhythm S1,S2,S3 pattern Please click the below link to view image of tracing.
[2024-01-25] MEDS: ASPirin 81 mg TAB PO SCH (09:45)
[2024-01-25] MEDS: NITROGLYCERIN 0.4 MG SL TAB SL PRN (15:31)
[2024-01-26 00:37] VITALS: BP 97/55; PULSE 87; RESP 16; TEMP 97.7; O2SAT 94
[2024-01-26 05:00] VITALS: BP 148/64; PULSE 76; RESP 16; TEMP 97.7; O2SAT 99
[2024-01-26 08:05] VITALS: PULSE 85
[2024-01-26 08:37] VITALS: BP 99/64; PULSE 85; RESP 18; TEMP 98; O2SAT 98
--- NOTE | 2024-01-26 09:37 | DVHPNRES ---
Progress Note Date Seen: Jan 25, 2024 Resident Creating Document: BEN BURROWS RESIDENT Medical Necessity Reason Pt with a Central, PICC or Fol: No Subjective Review of Systems Mentions improvement in his symptoms, still mentions of left shoulder pain, left chest pain and left back pain. patient moves around without any motor deficit. ROS Constitutional: No: Fever, Chills, Sweats, Weakness, Malaise, Other Eyes: No: Pain, Vision change, Conjunctivae inflammation, Eyelid inflammation, Other, Redness ENT: No: Ear pain, Ear discharge, Nose pain, Nose discharge, Nose congestion, Mouth pain, Mouth swelling, Throat pain, Throat swelling, Other Respiratory: No: Cough, Dry, Shortness of breath, SOB with excertion, Wheezing, Hemoptysis, Pleuritic Pain, Sputum, Wheezing, Other Cardiovascular: No: Chest Pain, Palpitations, Orthopnea, Paroxysmal Noc. Dyspnea, Edema, Lt Headedness, Other Gastrointestinal: No: Nausea, Vomiting, Abdominal Pain, Diarrhea, Constipation, Melena, Hematochezia, Other Musculoskeletal: Left shoulder pain, left chest pain and left back pain No: other, neck pain, shoulder pain, arm pain, back pain, hand pain, leg pain, foot pain Neurological:; No: Weakness, Numbness, Incoordination, Change in speech, Confusion, Seizures Objective vital signs Vital Sign Date Time Temp Pulse Resp B/P (MAP) Pulse Ox O2 Delivery O2 Flow Rate FiO2 01/26/24 08:37 98.0 85 18 99/64 (76) 98 98.0 01/26/24 08:05 Room Air* 0 21 Total Intake and Output 01/25/24 01/25/24 01/26/24 15:00 23:00 07:00 Intake Total 250 ml 450 ml Output Total 1100 ml Balance 250 ml -650 ml medications Current Medications Medications Dose Ordered Sig/Evie Route Start Time Stop Time Status Last Admin Dose Admin Aspirin 81 mg DAILY PO 01/25/24 10:00 01/25/24 09:45 81 MG Clopidogrel Bisulfate 75 mg DAILY PO 01/24/24 10:00 01/25/24 09:47 75 MG Atorvastatin Calcium 40 mg HS PO 01/24/24 22:00 01/25/24 21:32 40 MG Metoprolol Tartrate 12.5 mg Q12HR PO 01/24/24 10:00 01/25/24 21:31 12.5 MG Lisinopril 5 mg DAILY PO 01/24/24 10:00 01/25/24 09:48 5 MG Acetaminophen 650 mg Q6HP PRN PO 01/24/24 09:15 01/25/24 09:45 650 MG Lorazepam 0.5 mg Q6HP PRN PO 01/24/24 09:15 01/24/24 21:42 0.5 MG Docusate Sodium 100 mg DAILY PO 01/24/24 10:00 01/25/24 09:47 100 MG Nitroglycerin 0.4 mg Q5MINP PRN SL 01/24/24 09:15 01/25/24 15:31 0.4 MG Ondansetron HCl 4 mg Q4HP PRN IV 01/24/24 09:15 Acetaminophen/ Hydrocodone Bitart 1 tab Q6HPRN PRN PO 01/24/24 20:45 01/25/24 22:02 1 TAB Examination Examination General Appearance: Alert, Oriented X3, Cooperative, No acute distress HEENT: EOMI Respiratory: Clear to auscultation, Normal air movement Cardiovascular: Regular rate, Normal S1, Normal S2 Abdominal: Normal bowel sounds Extremities: No cyanosis, No edema, Normal pulses, No tenderness/swelling, left chest tenderness Skin: No rashes, No breakdown Neuro: Normal speech and tone laboratory and microbiology Laboratory Tests 01/25/24 05:53 Test 01/25/24 05:53 Range/Units Serum Glucose 109 H 74-106 mg/dL Labs and/or images reviewed: Labs reviewed by me, Image(s) reviewed by me Problem List/Assessment/Plan Problem List/Assessment/Plan Assessment/plan # Chest pain, ruled out ACS, likely due to musculoskeletal cause - troponins within normal limits -EKG unremarkable -IV pain medication -needs outpatient stress test -last echo done 01/04/2024 reveals lvef 6o% by visual estimate -normal RV function left atrium enlarged no severe valve abnormalities noted #?TIA -head CT within normal limits -patient has no motor deficits -currently on aspirin, atorvastatin, metoprolol and lisinopril read by the hospitalist - will evaluate for need for MRI Code status discussed with the patient for greater than 21 minutes, full code Case discussion with Dr. Corbin Plan discussed with: Other Date of Service: Jan 25, 2024 Billing Provider: JOSIAH CORBIN MD Common Visit Codes: [id number] INP/OBS CARE(HIGH) BEN BURROWS RESIDENT Jan 26, 2024 09:37 JOSIAH CORBIN MD Jan 26, 2024 20:44
[2024-01-26] MEDS: POTASSIUM EFFERVESENT TAB 25 MEQ PO ONE (10:16)
[2024-01-26 10:31] LABS: INR 1.08 (0.9-1.15); Partial Thromboplastin Time 25.6 SEC (24.5-34.5); Prothrombin Time 11.4 sec (9.3-11.8)
[2024-01-26 10:33] LABS: Magnesium 1.8 mg/dL (1.6-2.6)
[2024-01-26 10:34] LABS: Albumin 3.9 g/dL (3.2-4.8); Bilirubin, Direct 0.2 mg/dL (<0.3); Bilirubin, Total 0.7 mg/dL (0.2-1.0); Total Protein 6.9 g/dL (5.7-8.2)
[2024-01-26 10:53] LABS: Erythrocyte Sedimentation Rate 7 mm/hr (0-20)
[2024-01-26] MEDS ORDERED: KETOROLAC TROMETH 30 MG/ML 1ML VIAL IV PRN (12:15)
[2024-01-26 13:00] VITALS: BP 114/81; PULSE 84; RESP 20; TEMP 98.4; O2SAT 100
--- NOTE | 2024-01-26 13:15 | ECG ---
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
--- NOTE | 2024-01-26 13:16 | ECG ---
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
[2024-01-26] MEDS: BACLOFEN 10 MG TAB PO SCH (14:07)
--- NOTE | 2024-01-26 15:28 | DVHDSRES ---
Discharge Summary Date of Admission Resident Creating Document: DANA TOURE RESIDENT Jan 24, 2024 at 09:11 Date of Discharge: Jan 26, 2024 Labs/Diagnostic Data: Laboratory Results Test 01/26/24 10:00 01/25/24 05:53 01/24/24 14:05 01/24/24 09:30 Erythrocyte Sedimentation Rate 7 mm/hr (0-20) Prothrombin Time 11.4 sec (9.3-11.8) Prothrombin Time INR 1.08 (0.9-1.15) Activated Partial Thromboplast Time 25.6 SEC (24.5-34.5) Magnesium Level 1.8 mg/dL (1.6-2.6) Total Bilirubin 0.7 mg/dL (0.2-1.0) Direct Bilirubin 0.2 mg/dL (<0.3) Aspartate Amino Transferase (AST) 49 U/L (13-40) Alanine Aminotransferase (ALT) 57 U/L (7-40) Alkaline Phosphatase 95 U/L (46-116) C-Reactive Protein High Sensitivity 0.55 mg/dL (<1.0) B-Type Natriuretic Peptide 28.28 pg/mL (0-100) Total Protein 6.9 g/dL (5.7-8.2) Albumin 3.9 g/dL (3.2-4.8) Thyroid Stimulating Hormone (TSH) 1.76 uIU/mL (0.55-4.78) White Blood Count 5.9 10^3/uL (4.4-10.8) Red Blood Count 4.76 10^6/uL (4.5-5.90) Hemoglobin 14.6 g/dL (13.5-17.5) Hematocrit 42.3 % (41.0-53.0) Mean Corpuscular Volume 89.0 fL (80.0-100.0) Mean Corpuscular Hemoglobin 30.8 pg (28.0-32.0) Mean Corpuscular Hemoglobin Concent 34.6 g/dL (32.0-36.0) Red Cell Distribution Width 13.2 % (11.8-14.3) Platelet Count 179 10^3/uL (140-450) Mean Platelet Volume 8.0 fL (6.9-10.8) Neutrophils (%) (Auto) 58.9 % (37.0-80.0) Lymphocytes (%) (Auto) 29.9 % (10.0-50.0) Monocytes (%) (Auto) 7.5 % (0.0-12.0) Eosinophils (%) (Auto) 3.1 % (0.0-7.0) Basophils (%) (Auto) 0.6 % (0.0-2.0) Neutrophils # (Auto) 3.5 10 ^3/uL (1.6-8.6) Lymphocytes # (Auto) 1.8 10 ^3/uL (0.4-5.4) Monocytes # (Auto) 0.4 10 ^3/uL (0-1.3) Eosinophils # (Auto) 0.2 10 ^3/uL (0-0.8) Basophils # (Auto) 0 10 ^3/uL (0-0.2) Nucleated Red Blood Cells 0.7 % Sodium Level 135 mmol/L (136-145) Potassium Level 3.7 mmol/L (3.5-5.1) Chloride Level 103 mmol/L (98-107) Carbon Dioxide Level 26 mmol/L (20-31) Anion Gap 6 (5-15) Blood Urea Nitrogen 12 mg/dL (9-23) Creatinine 0.82 mg/dL (0.700-1.30) Glomerular Filtration Rate Calc 114 mL/min (>90) BUN/Creatinine Ratio 14.6 (10.0-20.0) Serum Glucose 109 mg/dL (74-106) Calcium Level 9.1 mg/dL (8.7-10.4) Troponin I High Sensitivity < 3 ng/L (</=54) Urine Color Yellow (Yellow) Urine Clarity Clear (Clear) Urine pH 5.5 (5.0-9.0) Urine Specific [place] 1.028 (1.001-1.035) Urine Protein Trace (Negative) Urine Ketones 1+ (Negative) Urine Blood Negative /uL (Negative) Urine Nitrite Negative (Negative) Urine Bilirubin Negative (Negative) Urine Urobilinogen Normal mg/dL (Negative) Urine Leukocyte Esterase Negative /uL (Negative) Urine RBC 1 /hpf (0 - 3) Urine WBC <1 /hpf (0 - 3) Urine Squamous Epithelial Cells None seen /hpf (<5) Urine Bacteria None seen /hpf (None Seen) Urine Mucus Few (None Seen) Urine Glucose Normal mg/dL (Normal) Other Laboratory Tests 01/25/24 05:53 Brief Hx & Hospital Course: This is a 38 year old male patient with past medical history of transaminitis, alcoholic pancreatitis, obesity who presented to the ER with a chief complaint of chest pain. Patient said that the chest pain started on 01/22, is left-sided and radiates to his left arm and left face. It waxes and wanes and isn't increased with deep breathe. Patient also reports weakness on the left side. Associated factors include nausea and diaphoresis but no vomiting. Reports fevers but no chills. Patient was seen in this facility for the similar complaint on 01/07 and was diagnosed with noncardiac chest pain given the negative troponins, negative EKG and echocardiogram showing EF 60% with left atrial enlargement. He was advised outpatient cardiology workup. During hospital workup, troponins were within normal limits. BNP was 28. EKG revealed normal sinus rhythm. Telemetry reviewed, shows normal sinus rhythm with pulse in 90s. Physical exam was remarkable for chest tenderness but otherwise no murmurs heard. Patient was initially started on aspirin and atorvastatin. Patient had low likelihood of ACS. ESR and CRP were within normal limits. Patient was hypertension for which lisinopril and beta ernie was started which were later discontinued given that the patient's blood pressure was ranging in systolic of 90 mmHg. Patient's ASCVD risk is less than 5%. Patient was advised to follow up with dip painter as outpatient for a stress test. Patient reported paresthesias but is clinical exam was unremarkable for motor or sensory impairment. A head CT scan was completed which showed no acute intracranial abnormality. 01/26/2024-patient is asymptomatic, ambulating without assistance, clinically and hemodynamically stable and is therefore being discharged home. He is advised to follow up with discharge clinic appointment within 7-14 days and follow up with his primary care physician within 7-14 days. Operations or Procedures ORDERING PHYSICIAN: DEWEY SMITH MD PROCEDURE(s): HWOCT - HEAD WITHOUT CONTRAST REASON: parasthesias ORDER NUMBER(s): [id number], ACCESSION NUMBER(s): [id number] EXAM: CT HEAD WITHOUT CONTRAST INDICATION: parasthesias TECHNIQUE: CT of the head without intravenous contrast. Radiation Dose : 1. Head: CT Dose: CTDI volume is 54 mGy. Dose-length product is 1076 mGy*cm The dose indicators for CT are the volume Computed Tomography (CT) Dose Index (CTDIvol) and the Dose Length Product (DLP), and are measured in units of mGy and mGy-cm, respectively. These indicators are not patient dose, but values generated from the CT scanner acquisition factors. The report includes radiation exposure data for exposures received during this examination. COMPARISON: CT HEAD WITHOUT CONTRAST on DOS: 01/04/24, HEAD WITHOUT CONTRAST on DOS: 05/06/19 FINDINGS: There is no evidence of acute intracranial hemorrhage, extra-axial collection, mass effect, midline shift, herniation or hydrocephalus. The ventricles, sulci and cisterns are age appropriate. The jaramillo-white differentiation is intact. The visualized paranasal sinuses and mastoid air cells are clear. The surrounding soft tissues and osseous structures are unremarkable. IMPRESSION: No acute intracranial abnormality. Radiation optimization: All CT scans at this facility use at least one of these dose optimization techniques: automated exposure control mA and/or kV adjustment per patient size (includes targeted exams where dose is matched to clinical indication) or iterative reconstruction. ATED BY: JIMENEZ DICKEY MD DICTATED DATE/TIME: 01/24/24616 SIGNED BY: JIMENEZ DICKEY MD SIGNED DATE/TIME: 01/24/24616 CC: ORDERING PHYSICIAN: DEWEY SMITH MD PROCEDURE(s): CXRP - CHEST PORTABLE REASON: parasthesias ORDER NUMBER(s): [id number], ACCESSION NUMBER(s): [id number] CHEST RADIOGRAPH Indication:parasthesias Technique: Single frontal view of the chest was obtained COMPARISON: XY CHEST PORTABLE on DOS: 01/01/24, CHEST PORTABLE on DOS: 05/06/19 FINDINGS: Lines and Tubes: None Lungs: Clear Pleura: No effusion. No pneumothorax. Cardiomediastinal contours: Unremarkable Bones: Unremarkable IMPRESSION: No acute disease. ATED BY: JIMENEZ DICKEY MD DICTATED DATE/TIME: 01/24/24612 SIGNED BY: JIMENEZ DICKEY MD SIGNED DATE/TIME: 01/24/24612 CC: Condition at Discharge: Stable Final Diagnosis/Problems List Atypical chest pain likely secondary to musculoskeletal causes, low likelihood of ACS Essential hypertension Questionable TIA Ruled out acute hemorrhagic stroke at this point Transaminitis likely secondary to alcoholic steatosis History of alcoholic pancreatitis Obesity Alcoholic dependence Discharge Disposition: Home Discharge Instruct/Medications Diet: Regular Activity: Light activity Follow Up/Referral: Follow up with primary care physician within 7-14 days Follow up with dip painter outpatient for stress test. Medications: Per EMR Discharge Statement: "Patient was advised to return to the ER or call 911 if any headaches, dizziness, shortness of breath, chest pain, abdominal pain, bleeding, fevers, or worsening of medical condition. Patient was counseled about treatment plan, medications, possible side effects, patientverbalized understanding. All questions were answered to the best of my ability. This discharge took greater then 30 minutes in planning, reviewing documentation, counseling the patient, and discussing with other team members." ASSESSMENT ASSESSMENT Assessment Atypical chest pain likely secondary to musculoskeletal causes, ruled out ACS DANA TOURE RESIDENT Jan 26, 2024 15:28
[2024-01-26 17:01] VITALS: BP 113/70; PULSE 97; RESP 18; TEMP 98.1; O2SAT 100
[2024-01-31] MEDS ORDERED: HYDROcodone-ACET 5/325MG TAB PO PRN (12:45)
== END 2024-01-26 17:02 | disposition home or self-care (01) | DRG 47 ==
LOC: ER 05:43 → TELE 09:11 → TELE-WESTW 16:28
PROVIDERS: ADMIT Student in an Organized Health Care Education/Training Program; ATTEND Student in an Organized Health Care Education/Training Program
DX: G45.9 Transient cerebral ischemic attack, unspecified (principal); K76.0 Fatty (change of) liver, not elsewhere classified; E66.9 Obesity, unspecified; R07.89 Other chest pain; E78.00 Pure hypercholesterolemia, unspecified; I10 Essential (primary) hypertension; Z68.29 Body mass index [BMI] 29.0-29.9, adult; F10.20 Alcohol dependence, uncomplicated; Y90.9 Presence of alcohol in blood, level not specified
CPT/HCPCS: 36415; 70450; 71045; 80048; 80076; 81001; 83735; 83880; 84443; 84484; 85025; 85610; 85652; 85730; 86141; 93005; 97163; G0378

== ENCOUNTER 2024-02-07 02:42 | Emergency (ER) | payer MEDICAID ==
[~2024-02-07] VITALS: Ht 160 cm; Wt 74.9 kg
[2024-02-07] MEDS ORDERED: CHL10C PO (03:15)
--- NOTE | 2024-02-07 03:16 | ED.PDOC ---
History of Present Illness HPI Comments 38-year-old male who came to ER for high blood pressure. Patient does have history of hypertension but has poor compliance to his medications. States few hours ago, he was feeling unwell, he started having tremors, was shaking and was having mild chest discomfort. Patient is concerned that his blood pressure might be high. Patient did not really to get his blood pressure at home. Upon arrival blood pressure was 161/95 mm Hg. Chief Complaint: High Blood Pressure Time Seen by MD: 03:16 Primary Care Provider: unknown Reviewed Notes: Nurses Notes Allergies: Coded Allergies: NO KNOWN ALLERGIES (Unverified , 05/06/19) Home Meds Active Scripts Chlordiazepoxide Hcl (Ni-1) (I (Librium) 10 Mg Cap, 10 MG PO Q6HP PRN for 7 Days, #30 CAP 0 Refills Prov:BRENDA JULIO MD 02/07/24 Ibuprofen Micronized (Ibuprofen) 800 Mg Tab, 800 MG PO TIDP PRN for 10 Days, #30 TAB 0 Refills Prov:NAOMI ZIMMERMAN SALES SERVICE PROMOTER 11/10/23 Ibuprofen (Ibuprofen) 600 Mg Tab, 1 TAB PO TID, #30 TAB Prov:RONAK GEE 12/27/22 Information Source: Patient Mode of Arrival: Ambulatory Severity: Moderate Timing: Hours Duration: Since onset Prehospital treatment: None Past Medical History PAST MEDICAL HISTORY: High Lipids, HTN Past Medical History (Other): Alcoholic pancreatitis Surgical History: Denies all surgeries Family History Family History: Reviewed,noncontributory to illness Social History Smoker: Non-Smoker Alcohol: Occasionally Drugs: Denies Drug Use Lives In: Home Constitutional: denies: chills, diaphoresis, fatigue, fever, malaise, sweats, weakness, others EENTM: denies: blurred vision, double vision, ear bleeding, ear discharge, ear drainage, ear pain, ear ringing, eye pain, eye redness, hearing loss, mouth pain, mouth swelling, nasal discharge, nose bleeding, nose congestion, nose pain, photophobia, tearing, throat pain, throat swelling, voice changes, others Respiratory: denies: cough, hemoptysis, orthopnea, SOB at rest, shortness of breath, SOB with excertion, stridor, wheezing, others Cardiovascular: reports: chest pain; denies: dizzy spells, diaphoresis, Dyspnea on exertion, edema, irregular heart beat, left arm pain, lightheadedness, palpitations, PND, syncope, others Gastrointestinal: denies: abdomen distended, abdominal pain, blood streaked bowels, constipated, diarrhea, dysphagia, difficulty swallowing, hematemesis, melena, nausea, poor appetite, poor fluid intake, rectal bleeding, rectal pain, vomiting, others Genitourinary: denies: burning, dysuria, flank pain, frequency, hematuria, incontinence, penile discharge, penile sore, pain, testicle pain, testicle swelling, urgency, others Neurological: reports: tremors; denies: dizziness, fainting, headache, left sided numbness, left sided weakness, numbness, paresthesia, pre-existing deficit, right sided numbness, right sided weakness, seizure, speech problems, tingling, weakness, others Musculoskeletal: denies: back pain, gout, joint pain, joint swelling, muscle pain, muscle stiffness, neck pain, others Integumetry: denies: bruises, change in color, change in hair/nails, dryness, laceration, lesions, lumps, rash, wounds, others Allergic/Immunocompromised: denies: Difficulty Healing, Frequent Infections, Hives, Itching, others Hematologic/Lymphatic: denies: anemia, blood clots, easy bleeding, easy bruising, swollen glands, others Endocrine: denies: excessive hunger, excessive sweating, excessive thirst, excessive urination, flushing, intolerance to cold, intolerance to heat, unexplained weight gain, unexplained weight loss, others Psychiatric: denies: anxiety, bipolar disorder, depression, hopeless, panic disorder, schizophrenia, sleepless, suicidal, others Physical Exam General Appearance: No Apparent Distress, Normal HEENT: Normal ENT Inspection, Pharynx Normal, TMs Normal Neck: Full Range of Motion, Non-Tender, Normal, Normal Inspection Respiratory: Chest Non-Tender, Lungs Clear, No Accessory Muscle Use, No Respiratory Distress, Normal Breath Sounds Cardiovascular: No Edema, No JVD, No Murmur, No Gallop, Normal Peripheral Pulses, Regular Rate/Rhythm Breast Exam: Deferred Gastrointestinal: No Organomegaly, Non Tender, No Pulsatile Mass, Normal Bowel Sounds, Soft Genitalia: Deferred Pelvic: Deferred Rectal: Deferred Extremities: No calf tenderness, Normal capillary refill, Normal inspection, Normal range of motion, Non-tender, No pedal edema Musculoskeletal : Apperance: Normal 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 Was a procedure done?: No EKG EKG : Pulse Rate (adult): 112 [place]: RAD Comments sinus tachycardia, no STEMI Differential Dx Considerations may include: Anemia, electrolyte imbalance, hypertensive urgency, anxiety X-Ray, Labs, Meds, VS Vital Signs Date Time Temp Pulse Resp B/P (MAP) Pulse Ox O2 Delivery O2 Flow Rate FiO2 02/07/24 03:20 112 02/07/24 03:04 112 02/07/24 02:48 97.6 117 18 161/95 (117) 99 Lab Test 02/07/24 03:03 Range/Units POC Glucose 138 H 70-106 mg/dl Time of 1ST Reevaluation: 03:11 Reevaluation 1ST: Unchanged Time of 2ND Reevaluation: 03:53 Reevaluation 2ND: Improved Patient Education/Counseling: Diagnosis, Treatment Family Education/Counseling: No Family Present Departure 1 Departure Time of Disposition: 03:53 Impression: Primary Impression: Insomnia Additional Impression: History of alcohol abuse Disposition: 01 HOME / SELF CARE / HOMELESS Condition: Stable e-Prescriptions Chlordiazepoxide Hcl (Ni-1) (I (Librium) 10 Mg Cap 10 MG PO Q6HP PRN for 7 Days, #30 CAP 0 Refills Prov: BRENDA JULIO MD 02/07/24 Discharged With: Self Critical Care Note Critical Care Time?: Yes (35 min-critical care time only) Stability Stability form required: No Heart Score Heart Score: Heart Score Response (Comments) Value History Slightly Suspicious 0 EKG Repolarization Disturb 1 Age <45 0 Risk Factors 1 or 2 risk factors 1 Troponin N/A 0 Total 2 I personally scribed for BRENDA JULIO MD ([email or web address]) on 02/07/24 at 03:16. Electronically submitted by Noe Arriaza ([email or web address]). BRENDA JULIO MD Feb 07, 2024 03:16
[2024-02-07 04:00] VITALS: BP 123/90; PULSE 107; RESP 16; O2SAT 91
--- NOTE | 2024-02-08 03:43 | ECG ---
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
== END 2024-02-07 04:04 | disposition home or self-care (01) ==
LOC: ER 02:42
DX: G47.00 Insomnia, unspecified (principal); R07.89 Other chest pain; I10 Essential (primary) hypertension; E78.5 Hyperlipidemia, unspecified; Z79.899 Other long term (current) drug therapy
CPT/HCPCS: 82962; 93005